=== PATIENT | female | born 1955 | race Caucasian/White ===

== ENCOUNTER 2016-12-26 09:15 | Outpatient (RCR) | payer OTHER | END 2016-12-27 13:58 | disposition home or self-care (01) | LOC: MKS.ESL.PT 09:15 | DX: M25.512 Pain in left shoulder (principal) ==

== ENCOUNTER → 2017-01-04 | Outpatient (CLI) | payer OTHER | LOC: MC.RAD 08:00 | DX: Z12.31 Encounter for screening mammogram for malignant neoplasm of breast (principal) ==

== ENCOUNTER 2018-01-27 16:15 | Outpatient (RCR) | payer BC | END 2018-03-24 | disposition home or self-care (01) | LOC: MKS.ESL.PT | DX: M54.41 Lumbago with sciatica, right side (principal) | CPT/HCPCS: G0283-GP ==

== ENCOUNTER → 2019-02-16 | Outpatient (CLI) | payer MEDICARE, OTHER | LOC: MC.RAD 14:49 | DX: Z12.31 Encounter for screening mammogram for malignant neoplasm of breast (principal) ==

== ENCOUNTER → 2020-02-09 | Outpatient (CLI) | payer MEDICARE, OTHER | LOC: ZCOL.LAB 14:49 | DX: J02.9 Acute pharyngitis, unspecified (principal); M79.10 Myalgia, unspecified site; Z20.828 Contact with and (suspected) exposure to other viral communicable diseases ==

== ENCOUNTER 2021-05-10 14:00 | Outpatient (RCR) | payer MEDICARE, OTHER | END 2021-05-11 13:04 | disposition home or self-care (01) | LOC: MKS.ESL.PT 14:00 | DX: M54.50 Low back pain, unspecified (principal) ==